=== PATIENT | male | born 1965 | race Hispanic/Latino ===

== ENCOUNTER 2017-03-11 00:46 | Day surgery (SDC) | payer MEDICAID ==
[~2017-03-11 00:46] MED LIST: INSU100I13 SUBQ; MTH10T PO; NPR500T PO; Oxycodone PO; Prozac; [UNRECOGNIZED DRUG - REMARK]
[2017-03-11] MEDS ORDERED: Lactated Ringer's 1,000 ML IV ONE ×2 (06:00→09:52)
--- NOTE | 2017-03-11 07:52 | PCM.HPANE ---
Patient Data Surgeon Admitting Provider: Attending Provider:Martín Negron MD Primary Care Physician:Kamaljit Luna Other Provider:Ayan Kim Anesthesia Reason for Visit Chronic Hep C Ht/WT & BMI Body Mass Index Allergies Coded Allergies: No Known Drug Allergies (Verified Allergy, Unknown, PER PCP CHART, 03/10/17 ) Uncoded Allergies: UNKNOWN ANTIBIOTIC...KIDNEY FAILURE (Allergy, Unknown, 08/28/15) Past Anesthesia History Anesthesia History: Denies:: Abnormal Airway, Difficult Intubation Diabetes History Hx Diabetes?: Yes Type of Diabetes: Type II MRSA MRSA: Yes Medications Active Scripts Naproxen 500 Mg [id number] Mg PO BID PRN For Pain #30 TABLET Prov:Cyrus Corado DO 08/28/15 [Oxycodone] No Conflict Check10 Mg PO PRN #30 Prov:Sean Montgomery MD 08/23/13 Reported Medications Methadone 10 Mg Tab10 Mg PO Q6H Ref 0 03/10/17 Insulin Glargine (Lantus U100 Solostar Insulin Pen)100 Unit/1 Ml Insuln.pen1 Unit SUBQ HS #1 PENINJ Ref 0 03/10/17 [Hypnotic] No Conflict Check 11/28/13 [Prozac] No Conflict Check 11/28/13 Discontinued Scripts Clindamycin 300 Mg [id number] Mg PO TID #21 CAPSULE Prov:Cyrus Corado DO 08/28/15 Cephalexin-Expunged Drug, Do Not Renew! (Keflex-Expunged Drug, Do Not Renew!) 500 Mg [id number] Mg PO QID #100 CAP Prov:Sean Montgomery MD 08/23/13 Insulin GLARGine-Expunged Drug, Do Not Renew! (Lantus-Expunged Drug, Do Not Renew!)3 Ml [id number] Unit SUBQ BID 30 Days Prov:Romeo Zhu MD 03/06/13 Insulin LISPRO-Expunged Drug, Do Not Renew! (Humalog-Expunged Drug, Do Not Renew !)100 Unit/Ml Unit15 Unit SUBQ AC 30 Days Prov:Romeo Zhu MD 03/06/13 History History of ENT Problems?: No HEENT History: Denies:: Abnormal Airway Difficult Intubation Hx of Heart Problems?: No Cardiovascular History: Denies:: Congestive Heart Failure Hypertension Hx of Respiratory Problem?: No Respiratory History: Denies:: Tuberculosis Hx Neurologic Problems?: No Hx of GI Problems?: Yes Hx of Problems?: Yes Genitourinary History: Positive for:: HX of Hemodialysis (No longer on dialysis) Male Hx: Denies:: Prostate Problems Scrotal Mass Testicular Surgery Hx Musculoskeletal Problems?: No Hx of Psycho/Social Problems?: No Hx Surgeries?: Yes (4 abscesses cleaned out in February 2013) Hx Any Other Health Problems?: No History Blood Transfusions: Denies:: Blood Transfuse Reaction Blood Transfusions Hx Diabetes: Yes Hx Alcohol Use: NoHx Substance Use: Yes (heroin) Smoking Status: Current Every Day Smoker Have You Smoked inLast 12 mo: Yes Stop/Bang Risk Assessment Category Category 1A: Patient has history of documented sleep apnea, and HAS NOT received any narcotic, sedative or anesthesia administration during this stay. Category 1B: Patient has history of documented sleep apnea, and HAS received any narcotic , sedative or anesthesia administration during this stay Category 2: Patient has SUSPECTED Obstructive Sleep Apnea, and HAS received any narcotic , sedative or anesthesia administration during this stay. Category 3: Patient has SUSPECTED Obstructive Sleep Apnea and HAS NOT received narcotic, sedative or anesthesia administration during this stay. Category 4: Outpatient in Procedural Areas with known sleep apnea or who screen positive for High Risk via the STOP/BANG questionnaire. Plan Impression Patient chart reviewed, patient interviewed and anesthestic plan with risks, benefits, and alternatives discussed, and informed consent obtained. Anderson Almaraz MD March 11, 2017 07:52
== END 2017-03-11 23:59 | disposition home or self-care (01) ==
LOC: END 00:46
PROVIDERS: ATTEND Internal Medicine Gastroenterology
DX: B18.2 Chronic viral hepatitis C (principal); Z53.8 Procedure and treatment not carried out for other reasons